=== PATIENT | male | born 1975 | race African-American/Black ===

== ENCOUNTER 2016-08-17 12:13 | Emergency (ER) | payer SELFPAY ==
[~2016-08-17] VITALS: Ht 180.3 cm; Wt 100.0 kg
[~2016-08-17 12:13] MED LIST: Z.0.NO CURRENT MEDS
[2016-08-17 12:14] VITALS: BP 164/90; PULSE 68; RESP 24; TEMP 98.4; O2SAT 100
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
[2016-08-17] MEDS ORDERED: IBUPROFEN 800 MG TAB PO ONE (12:45)
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
[2016-08-17] MEDS ORDERED: IBUP800T23 PO (13:21)
== END 2016-08-17 14:07 | disposition home or self-care (01) ==
LOC: NEPK 12:13
DX: S91.331A Puncture wound without foreign body, right foot, initial encounter (principal); W34.010A Accidental discharge of airgun, initial encounter
CPT/HCPCS: 73630; 99283